=== PATIENT | female | born 1935 | race Caucasian/White ===

== ENCOUNTER 2016-04-25 12:22 | Day surgery (SDC) | payer OTHER, MEDICARE ==
[2016-04-25] MEDS ORDERED: MIDAZOLAM HCL 2 MG/2 ML SINGLE DOSE VIAL ONE (14:14)
[2016-04-25] MEDS ORDERED: LIDOCAINE HCL/PF 2% SDV 5ML VIAL ONE (14:14)
[2016-04-25] MEDS ORDERED: PROPOFOL 20 ML ONE ×2 (14:14→14:39)
[2016-04-25] MEDS ORDERED: SUCCINYLCHOLINE CHLORIDE 200 MG/10 ML VIAL ONE (14:15)
[2016-04-25] MEDS ORDERED: ROCURONIUM BROMIDE 50 MG/5 ML VIAL ONE (14:42)
[2016-04-25] MEDS ORDERED: ceFAZolin SODIUM 1 GM VIAL ONE (14:46)
[2016-04-25] MEDS ORDERED: ONDANSETRON 4 MG/2 ML VIAL ONE (14:46)
[2016-04-25] MEDS ORDERED: DEXAMETHASONE SOD PHOSPHATE 4 MG/1 ML VIAL ONE (14:46)
[2016-04-25] MEDS ORDERED: DESFLURANE GAS 240 ML BOTTLE IH ONE (15:13)
[2016-04-25] MEDS ORDERED: NEOSTIGMINE METHYLSULFATE 0.5 MG/ML - 10 ML MDV ONE (15:30)
[2016-04-25] MEDS ORDERED: GLYCOPYRROLATE 0.2 MG/1 ML VIAL ONE (15:42)
[2016-04-25] MEDS ORDERED: oxyCODONE HCL 5 MG TABLET PO PRN ×2 (16:21)
[2016-04-25] MEDS ORDERED: ONDANSETRON 4 MG/2 ML VIAL IVPB PRN (16:21)
[2016-04-25] MEDS ORDERED: LACTATED RINGERS SOLUTION 1,000 ML IV SCH (16:30)
[2016-04-25] MEDS ORDERED: ACETAMINOPHEN 325 MG TABLET (FP) PO ONE (16:45)
[2016-04-25] MEDS ORDERED: ACETAMINOPHEN 325 MG TABLET (FP) ONE (16:48)
--- NOTE | 2016-04-25 17:59 | OP ---
DATE OF OPERATION: 04/25/2016 TITLE OF PROCEDURE: Full thickness skin graft reconstruction of nasal tip defect with excision of nasal tip defect and additional nasal tip subunit skin in preparation for full thickness skin graft repair. ATTENDING SURGEON: Mynor Chou M.D. PATROL GUARD: There is no certified dental assistant. ANESTHESIA: General endotracheal anesthesia. An additional 7 mL of 1% lidocaine 1:100,000 epinephrine is given. DESCRIPTION OF PROCEDURE: Sequential compression stockings are applied to the patient. She is counseled on all risks, benefits, and alternatives to the procedure. She understands the nature and location of scars. She is brought to the operating room, placed in the supine position. Prepped and draped in standard surgical fashion. A gram of Ancef was given preoperatively. After a timeout was called, patient procedure, incision sites are verified. An elliptical piece of skin on the superior right forehead just inferior to the hairline is marked and harvested. This is harvested as a full thickness skin graft. Hemostasis is achieved, and the donor site is closed primarily with a series of interrupted buried deep dermal 4-0 Monocryl suture followed by a running 5-0 nylon suture. The graft is pie crusted, it de-fatted, it is rinsed with saline. The donor site is then addressed. Hemostasis is assured. The skin edges are re-excised for healthy bleeding tissue. The residual skin of the nasal tip subunit is then also excised, not exceeding the size of the skin graft. Skin graft is then placed with the dermis side down onto the defect. It is sewn to the corners of the defect after being trimmed and conformed. This inset is with a series of dermal running 6-0 nylon suture. Tie over bolster is then placed with bacitracin and Xeroform and 4-0 nylon. The donor site is dressed with half-inch Steri-Strips. The patient is awoken from anesthesia, having tolerated procedure well, transferred to recovery room with head elevation. MYNOR CHOU M.D. [id number]
[2016-04-25 19:02] VITALS: BP 138/62; PULSE 77; TEMP 98.1
--- NOTE | 2016-04-26 12:40 | EKG ---
Test Reason : Blood Pressure : / mmHG Vent. Rate : 071 BPM Atrial Rate : 071 BPM P-R Int : 208 ms QRS Dur : 092 ms QT Int : 424 ms P-R-T Axes : 088 -37 025 degrees QTc Int : 460 ms NORMAL SINUS RHYTHM LEFT AXIS DEVIATION MINIMAL VOLTAGE CRITERIA FOR LVH, MAY BE NORMAL VARIANT POSSIBLE ANTERIOR INFARCT , AGE UNDETERMINED ABNORMAL ECG NO PREVIOUS ECGS AVAILABLE Confirmed by MADINA MERCADO MD ([id number]) on 04/26/2016 12:40:44 PM Referred By: Bryon Avila Confirmed By:MADINA MERCADO MD
== END 2016-04-25 18:35 | disposition home or self-care (01) ==
LOC: FASU 12:22
PROVIDERS: ATTEND Plastic Surgery
PROC: 0HB1XZZ Excision of Face Skin, External Approach (ICD-10-PCS; 2016-04-25)
PROC: 0HR1X73 Replacement of Face Skin with Autologous Tissue Substitute, Full Thickness, External Approach (ICD-10-PCS; principal; 2016-04-25 14:56)
DX: C44.311 Basal cell carcinoma of skin of nose (principal)
CPT/HCPCS: 93005

== ENCOUNTER 2022-05-21 04:17 | Day surgery (SDC) | payer OTHER, MEDICARE ==
[2022-05-16 10:41] VITALS: BMI 31.1
[2022-05-21 13:03] VITALS: RESP 20
[2022-05-21] MEDS ORDERED: MIDAZOLAM HCL 2 MG/2 ML SINGLE DOSE VIAL ONE (13:53)
[2022-05-21] MEDS ORDERED: ceFAZolin SODIUM 1 GM VIAL ONE (13:56)
[2022-05-21] MEDS ORDERED: ceFAZolin SODIUM 1 GM VIAL IVPB ONE (13:58)
[2022-05-21 14:48] VITALS: PULSE 70
[2022-05-21 17:50] VITALS: BP 154/67; TEMP 98.4
== END 2022-05-21 15:40 | disposition home or self-care (01) ==
LOC: JASU-SURG 04:17
PROVIDERS: ATTEND Urology
PROC: 0TF7XZZ Fragmentation in Left Ureter, External Approach (ICD-10-PCS; principal; 2022-05-21 13:45)
DX: N20.1 Calculus of ureter (principal)

== ENCOUNTER 2022-06-13 04:22 | Day surgery (SDC) | payer OTHER, MEDICARE ==
[2022-06-10 12:27] VITALS: BMI 31.1
[2022-06-13] MEDS ORDERED: FENTANYL CITRATE/PF 50 MCG/ML VIAL ONE (10:22)
[2022-06-13] MEDS ORDERED: FENTANYL CITRATE/PF 50 MCG/ML VIAL IVPUSH ONE (10:25)
[2022-06-13 11:28] VITALS: RESP 18
[2022-06-13 12:02] VITALS: BP 145/67; PULSE 62; TEMP 97.8
== END 2022-06-13 12:22 | disposition home or self-care (01) ==
LOC: JRADIR 04:22
PROVIDERS: ATTEND Urology
PROC: 0T25X0Z Change Drainage Device in Kidney, External Approach (ICD-10-PCS; principal; 2022-06-13)
DX: N20.2 Calculus of kidney with calculus of ureter (principal)
CPT/HCPCS: 50693

== ENCOUNTER 2022-07-08 05:23 | Day surgery (SDC) | payer OTHER, MEDICARE ==
[2022-07-04 10:04] VITALS: BMI 31.1
[2022-07-08] MEDS ORDERED: MIDAZOLAM HCL 2 MG/2 ML SINGLE DOSE VIAL ONE (14:43)
[2022-07-08] MEDS ORDERED: PROPOFOL 20 ML ONE (14:43)
[2022-07-08] MEDS ORDERED: ceFAZolin SODIUM 1 GM VIAL IVPB ONE (15:10)
[2022-07-08] MEDS ORDERED: DEXAMETHASONE SOD PHOSPHATE 4 MG/1 ML VIAL ONE (15:33)
[2022-07-08] MEDS ORDERED: ceFAZolin SODIUM 1 GM VIAL ONE (15:33)
[2022-07-08] MEDS ORDERED: ONDANSETRON 4 MG/2 ML VIAL ONE (15:33)
[2022-07-08] MEDS ORDERED: ONDANSETRON 4 MG/2 ML VIAL IVPUSH PRN (16:22)
[2022-07-08] MEDS ORDERED: LACTATED RINGERS SOLUTION 1,000 ML IV SCH (16:30)
[2022-07-08 17:10] VITALS: RESP 20
[2022-07-08 18:15] VITALS: BP 133/54; PULSE 83; TEMP 97.8
== END 2022-07-08 18:10 | disposition home or self-care (01) ==
LOC: JASU-SURG 05:23
PROVIDERS: ATTEND Urology
PROC: 0TF78ZZ Fragmentation in Left Ureter, Via Natural or Artificial Opening Endoscopic (ICD-10-PCS; principal; 2022-07-08 14:00)
PROC: 0T778DZ Dilation of Left Ureter with Intraluminal Device, Via Natural or Artificial Opening Endoscopic (ICD-10-PCS; 2022-07-08 14:00)
PROC: 0TP5X0Z Removal of Drainage Device from Kidney, External Approach (ICD-10-PCS; 2022-07-08 14:00)
PROC: BT1FYZZ Fluoroscopy of Left Kidney, Ureter and Bladder using Other Contrast (ICD-10-PCS; 2022-07-08 14:00)
DX: N20.1 Calculus of ureter (principal); N13.5 Crossing vessel and stricture of ureter without hydronephrosis
CPT/HCPCS: 76000-TC-FY; 94760; C1747; C1758; C2617